=== PATIENT | female | born 2000 ===

== ENCOUNTER 2020-12-18 13:21 | Outpatient (CLI) | payer OTHER | END 2020-12-18 13:41 | disposition home or self-care (01) | LOC: SONOGRAMA 13:21 | PROVIDERS: ATTEND Surgery | DX: D24.1 Benign neoplasm of right breast (principal); N60.11 Diffuse cystic mastopathy of right breast; N60.12 Diffuse cystic mastopathy of left breast ==

== ENCOUNTER 2021-01-29 07:23 | Day surgery (SDC) | payer OTHER ==
[~2021-01-29 07:23] MED LIST: LEXAPRO20 MG PO; SPIRONOLACTONE PO; [UNRECOGNIZED DRUG - OTHER]; [UNRECOGNIZED DRUG - OTHER] PO
== END 2021-01-29 20:45 | disposition home or self-care (01) ==
LOC: CIR.AMB 07:23
PROVIDERS: ATTEND Surgery
DX: D24.1 Benign neoplasm of right breast (principal); Z20.822 Contact with and (suspected) exposure to COVID-19